=== PATIENT | female | born 1995 | race Caucasian/White ===

== ENCOUNTER 2020-08-24 13:22 | Emergency (ER) | payer OTHER, SELFPAY ==
--- NOTE | ~2020-08-24 | XR_ITS ---
XR shoulder LT min 2V 08/24/2020 14:16 INDICATION: Left shoulder pain PROCEDURE: 4 views left shoulder COMPARISON: No prior studies for comparison. FINDINGS: Fracture, dislocation or subluxation is not identified. The soft tissues appear within norm al limits. No foreign bodies are identified. IMPRESSION: 1: NO ACUTE BONE OR JOINT ABNORMALITY IDENTIFIED. Reviewed, dictated and finalized at location A.
[2020-08-24 13:34] VITALS: BP 148/79; PULSE 109; RESP 18; TEMP 36.7; O2SAT 100
[2020-08-24] MEDS: KETOROLAC 15 MG/ML VIAL (*BKC) IV PUSH (14:58)
[2020-08-24] MEDS: MORPHINE SULFATE (*CRX) 2 MG/ML INJ 1 MG IV PUSH (15:53)
[2020-08-24 16:08] VITALS: BP 130/70; PULSE 88; RESP 17; O2SAT 98
--- NOTE | 2020-08-24 20:45 | ED.GENADULT ---
HPI - General Adult General Chief complaint: Extremity Injury, Upper Stated complaint: left shoulder injury Time Seen by Provider: 08/24/20 13:43 Source: patient Mode of arrival: ambulatory Limitations: no limitations History of Present Illness HPI narrative: Patient presents with chief complaint of dislocated left shoulder that occurred approximately 12 AM when trying to remove a box from a shelf. Patient states that the shoulder has dislocated a few years ago but has not since. Patient reports pain to the anterior aspect of her shoulder. Patient denies any other injuries or concerns. Related Data Allergies Allergy/AdvReac Type Severity Reaction Status Date / Time No Known Allergies Allergy Unverified 04/07/17 16:46 Review of Systems Review of Systems: Narrative: CONSTITUTIONAL: Denies fever, chills, or sweats. EYES: Denies visual changes, redness, or discharge. ENT: Denies rhinorrhea, congestion, sore throat, or otalgia. CARDIOVASCULAR: Denies chest pain, palpitations, or edema. RESPIRATORY: Denies cough or dyspnea. GASTROINTESTINAL: Denies abdominal pain, nausea, vomiting, or diarrhea. GENITOURINARY: Denies dysuria or hematuria. SKIN: Denies rash or itching. MUSCULOSKELETAL: Reports left shoulder pain denies back pain, other joint pain, or myalgia. NEUROLOGIC: Denies headache, numbness, dizziness, or weakness. PSYCHIATRIC: Denies anxiety or depression. PMFSH Social History Social History Gender identity (if verbalized by the patient): Female Exam Narrative: Exam Narrative: GENERAL: Well-appearing, well-nourished, and in no acute distress. HEAD: Normocephalic, atraumatic. EYES: PERRLA and EOMI. NECK: Supple. No adenopathy or masses. CHEST: Clear to auscultation. No respiratory distress. No wheezes rales or rhonchi HEART: Regular rate and rhythm. No murmur heard. Normal peripheral pulses. EXTREMITIES: Decreased range of motion due to pain. There is tenderness to palpation of patient's anterior shoulder with some swelling. SKIN: Warm, dry, no rash. NEURO: No focal deficits. Alert and oriented x3. PSYCH: Normal mood and affect. Course Vital Signs Vital signs: Vital Signs Temperature 98.1 F 08/24/20 13:34 Pulse Rate 109 H 08/24/20 13:34 Respiratory Rate 18 08/24/20 13:34 Blood Pressure 148/79 H 08/24/20 13:34 Pulse Oximetry 100 08/24/20 13:34 Temperature 98.1 F 08/24/20 13:34 Pulse Rate 88 08/24/20 16:08 Respiratory Rate 17 08/24/20 16:08 Blood Pressure 130/70 08/24/20 16:08 Pulse Oximetry 98 08/24/20 16:08 Medical Decision Making MDM Narrative Medical decision making narrative: Patient's x-ray shows the patient shoulder has been reduced. I did not have to perform this reduction. Patient placed in immobilizer. Patient still reports pain to the anterior aspect of left shoulder with movement. I believe that the patient may have injured a rotator cuff tendon. Patient placed in immobilizer and instructed to follow-up with economic development specialist and/or primary care for further investigation. Discussed with patient RICE instructions as well as the possibility of physical therapy or further imaging to further evaluate tendon and ligament damage. Patient has been given a work note to not use the left arm over this next week and has been informed to follow-up with primary care economic development specialist within this timeframe. Patient verbalized understanding agreement with plan denies any other questions or concerns. Differential Diagnosis Differential Diagnosis: Fracture, sprain, strain Vital Signs Vital Signs: Vital Signs Temperature 98.1 F 08/24/20 13:34 Pulse Rate 109 H 08/24/20 13:34 Respiratory Rate 18 08/24/20 13:34 Blood Pressure 148/79 H 08/24/20 13:34 Pulse Oximetry 100 08/24/20 13:34 Temperature 98.1 F 08/24/20 13:34 Pulse Rate 88 08/24/20 16:08 Respiratory Rate 17 08/24/20 16:08 Blood Pressure 130/70 08/24/20 16:08 Pulse Oximetry 98
== END 2020-08-24 16:09 | disposition home or self-care (01) ==
PROVIDERS: Emergency Provider Emergency Medicine
DX: S49.92XA Unspecified injury of left shoulder and upper arm, initial encounter (principal); S46.002A Unspecified injury of muscle(s) and tendon(s) of the rotator cuff of left shoulder, initial encounter; X50.9XXA Other and unspecified overexertion or strenuous movements or postures, initial encounter
CPT/HCPCS: 73030; 81025; 96374; 96375; 99284; A4565; J1885; J2270

== ENCOUNTER → 2020-10-13 00:12 | Outpatient (CLI) | payer OTHER, SELFPAY ==
[2020-10-13 17:04] LABS: SARS-CoV-2 RNA PCR Negative
== END ==
PROVIDERS: Visit Provider Orthopaedic Surgery
DX: Z01.812 Encounter for preprocedural laboratory examination (principal); Z20.822 Contact with and (suspected) exposure to COVID-19
CPT/HCPCS: C9803; U0003; U0005

== ENCOUNTER 2020-10-15 05:59 | Day surgery (SDC) | payer OTHER, SELFPAY ==
[2020-10-12 09:39] VITALS: BMI 22.3
--- NOTE | 2020-10-14 12:49 | P.PNAN_ITS ---
Anes - Initial Pre Proc Eval Procedure: Operation Date: 10/15/20 10:30 Proposed Procedures p Left Shoulder Arthroscopic Capsulorrhaphy - Kunal Grant MD Date/Time: 10/14/20 12:49 Surgeon: Kunal Grant MD Pre Op Diagnosis: anterior dislocation of the left humerus Patient Data Age: 25 Gender: F Height: 1.73 m Weight: 66.5 kg Allergies Allergy/AdvReac Type Severity Reaction Status Date / Time No Known Allergies Allergy Verified 10/15/20 09:44 Home Medications Medication Instructions Recorded Confirmed Type No Home Medications 10/12/20 10/15/20 History Patient hx anesthesia problems: none Family hx anesthesia problems: none [facility] Social History Social History (Updated 10/15/20 @ 09:52 by Nabil Cano DO) Years smoked: 0.5 Smoking status: Current every day smoker Tobacco type: e-cigarettes/vaping Alcohol intake: current Drinks per week: 3 Substance use type: marijuana Living arrangements: with family Gender identity (if verbalized by the patient): Female Spiritual care concerns: No Anes - Eval Final PreProcedure Day of Procedure 10/14/20 12:49 Patient weight: normal Heart: regular rate and rhythm Lungs: clear to auscultation and normal air movement Airway: Mallampati scale class 1 Neurological: alert and oriented Last oral intake: >/= 8 hours ASA classification: II Emergent: no Anesthetic plan: proceed Anesthesia type and monitoring: general ETT and standard monitoring Informed Consent: The patient's anesthetic plan and its attendant risks and benefits were discussed with the patient/family/POA. Questions were solicited and answers provided to the satisfaction of the patient/family/POA.
[2020-10-15] VITALS (9 sets, daily range): BP systolic 119–146; BP diastolic 47–92; PULSE 62–91; RESP 15–22; TEMP 36.2–36.6; O2SAT 96–100
[2020-10-15] MEDS: ACETAMINOPHEN 500 MG TABLET 1000 MG PO (08:57)
[2020-10-15] MEDS: LACTATED RINGERS 1,000 ML 30 ML IV CONT ×2 (09:11→12:10)
[2020-10-15] MEDS: KETOROLAC 15 MG/ML VIAL (*BKC) IV PUSH (09:13)
[2020-10-15] MEDS: fentaNYL CITRATE INJ (*CRX) 100 MCG/2 ML VIAL 50 MCG IV PUSH ×2 (09:16→09:43)
--- NOTE | 2020-10-15 09:49 | WPDHPUPDATE1 ---
History and Physical Update Update Date/Time: 10/15/20 09:49 History and Physical has been reviewed, including an updated exam of the patient. There are NO changes in the patient's condition. Risks, benefits, and alternatives have been discussed and questions answered. Patient agrees to proceed with procedure.
[2020-10-15] MEDS: FAMOTIDINE 20 MG/2 ML VIAL IV PUSH (10:00)
[2020-10-15] MEDS: SCOPOLAMINE 1.5 MG PATCH TRANSDERM (10:00)
[2020-10-15] MEDS: ceFAZolin 2 GM/D5W 50 ML 2 GM/50 ML BAG IVPB (10:06)
[2020-10-15] MEDS: BUPIVACAINE/EPINEPHRINE 0.5% 30 ML VIAL INFILTRATE (10:40)
[2020-10-15] MEDS: fentaNYL CITRATE INJ (*CRX) 100 MCG/2 ML VIAL 25 MCG IV PUSH ×8 (12:38→13:23)
[2020-10-15] MEDS: MIDAZOLAM HCL (*CRX) 2 MG/2 ML VIAL IV PUSH (13:30)
--- NOTE | 2020-10-15 13:30 | SUR.PHASEII ---
PT STATES SHE FEELS ANXIOUS AND ASKED FOR AN ANTI-ANXIETY MED; DR. BLANK ORDERED VERSED 2 MG.
[2020-10-15] MEDS: oxyCODONE HCL (*CRX) 5 MG TAB IR PO (13:35)
--- NOTE | 2020-10-15 16:15 | PM.PROC ---
Procedure Note - Detailed Date of procedure: 10/15/20 Pre-op diagnosis: anterior dislocation of the left humerus 1. Anterior dislocation left glenohumeral joint 2. Multidirectional instability left shoulder Post-op diagnosis: same Procedure performed: 1. Arthroscopic anterior capsulorrhaphy left shoulder Description of procedure: The shoulder demonstrated significant anterior laxity and generalized laxity. Modest symmetrical sulcus sign which resolved with external rotation. The pathologic tissue was clearly the anterior-inferior capsule which appeared to be quite disrupted particularly in the region inferior to the thickened middle glenohumeral ligament. It was patulous and draped inferiorly. The tissue was thin more proximally. Reduction could be performed by grasping the capsule and pulling it back to the inferior labrum. The labrum was intact. The inferior and posterior capsule were not patulous. After repair and shifting of the anterior capsule and inferior glenohumeral ligament complex, the inferior and posterior capsule appeared essentially anatomic. Repair was accomplished with 2 all suture, knotless anchors anteriorly inferiorly. The posterior arthroscopic portal was closed. Implants: Arthrex knotless all suture anchors, x2. Anesthesia: [facility] Surgeon: Kunal Grant MD Fringe Knotter: Antionette Stewart PA-C Estimated blood loss (mL): 20 Complications: No immediate complications Condition: stable Disposition: PACU Findings: Preoperative antibiotics were given. The patient was placed in the lateral decubitus position. The axillary roll was carefully positioned. Bony prominences along the leg were carefully padded. The head neck was carefully supported. The shoulder was prepped and draped in the sterile usual sterile fashion. The articulating arm traction unit was applied. The abduction element was also placed. Posterior superior portal was established and inspection performed. Two anterior portals were created. Glenohumeral joint showed a positive drive-through sign. The inferior and posterior capsule were not pathologic in appearance or patulous. The labrum was essentially normal although there was mild fraying at the anterior inferior aspect, consistent with the instability history. The rotator cuff was normal. The pathologic area was anterior and inferior. The capsule appeared to be severely stretched in this area and was billowing medially away from the joint. It was also quite thin, particularly anteriorly just distal to the middle glenohumeral ligament, which was thickened. However the middle glenohumeral ligament appeared anatomic. Attention was thus turned to the anterior-inferior capsule. Reducing the capsule tightened the inferior glenohumeral ligament very nicely. This also appeared to render the inferior and posterior capsule normal in appearance. The capsule was abraded with a rasp to improve healing potential. Two suture anchors were placed on the face of the glenoid, just inside the labrum, where there was a very subtle cleft in the the tissue. Each provided capsular plication and shifting of the anterior inferior capsule. The anterior bumper affect appeared improved. The humeral head was nicely centered and the drive-through sign significantly diminished. The shoulder was removed from traction and the tissue demonstrated optimal tension through range of motion. The humeral head was nicely centered on the glenoid. Good balance between the anterior and posterior tissues was confirmed. The posterior arthroscopic portal was repaired at the capsulewith a #1 PDS suture. The remaining arthroscopic portals were closed at the skin with 4-0 Monocryl. Steri-Strips were applied. The patient was placed in a sling, extubated, and brought to the recovery room in stable condition.
== END 2020-10-15 14:30 | disposition home or self-care (01) ==
PROVIDERS: Visit Provider Orthopaedic Surgery
PROC: (CPT 29805; principal; 2020-10-15 10:30)
DX: S43.015A Anterior dislocation of left humerus, initial encounter (principal); M25.312 Other instability, left shoulder; X50.0XXA Overexertion from strenuous movement or load, initial encounter; F17.290 Nicotine dependence, other tobacco product, uncomplicated; F12.90 Cannabis use, unspecified, uncomplicated
CPT/HCPCS: 29806; A9270; J0690; J1100; J1170; J1885; J2250; J2405; J2704; J3010; J7120